=== PATIENT | female | born 1995 | race Caucasian/White ===

== ENCOUNTER 2024-01-28 00:43 | Emergency (ER) | payer BC, SELFPAY ==
[2024-01-28 00:49] VITALS: BP 109/77
--- NOTE | 2024-01-28 02:40 | ED.GENMED ---
History of Present Illness
<CHASTITY Kenny - Last Filed: 01/31/24 04:36>
General
Chief Complaint: Urinary Symptoms
Source: patient
Exam Limitations: none
Time Seen by Provider: 01/28/24 02:29
History of Present Illness
History of Present Illness:
This is a 28 year old female that comes in with c/o difficulty urinating. States that she was fine all day. Then in the afternoon she realized that she hadn't really urinated all day. States that she tried to pee but was unable. States that she then
vomited and had some urinary burning. States that she took a shower and tried to go again but was unable. States that she was nauseated and then had a loose stool. States that she did take Azo before coming. States that she did feel lightheaded.
Denies any fever, chills, chest pain, SOB, diarrhea, headache.
Past History
<CHASTITY Kenny - Last Filed: 01/31/24 04:36>
Past History
ED Past Medical History: IDDM, Hypothyroidism, Psychiatric (Anxiety ) and Other (Hemorrhagic ovarian cyst. Eczema, Vitiligo, History of MRSA)
ED Past Surgical History: None
Social History
Tobacco: Non-smoker
Alcohol: Occasional
Drug: None
Personal: Single
Living: with family
Review of Systems
<CHASTITY Kenny - Last Filed: 01/31/24 04:36>
Review of Systems
All Other Systems: ROS reviewed and negative except as documented in HPI and ROS
Constitutional: Reports no symptoms; Denies fever or chills
EENT: Reports no symptoms
Respiratory: Reports no symptoms; Denies cough or trouble breathing
Cardiac: Reports no symptoms; Denies chest pain
ABD/GI: Reports abdominal pain, nausea and vomiting; Denies diarrhea
: Reports dysuria and difficulty voiding; Denies frequency or urgency
Musculoskeletal: Reports no symptoms
Skin: Reports no symptoms
Neurological: Reports other (lightheaded); Denies dizzy or headache
Psychiatric: Reports no symptoms
Phy Exam
<CHASTITY Kenny - Last Filed: 01/31/24 04:36>
General Physical Exam
General Presentation: well appearing and no apparent distress
General age: appears stated age
General Skin: warm and dry
General Habitus: normal
General Mental: alert
General Hydration: appears well hydrated
ENT Exam
ENT Exam: TM's normal, pharynx normal and neck supple
Eye Exam
Eye Exam: EOMI
Cardiovascular Exam
Cardiovascular Exam: regular rate/rhythm, no edema, no murmur and normal peripheral pulses
Pulmonary Exam
Pulmonary Exam: lungs clear, no respiratory distress, no rales, chest non tender, no crackles, no rhonchi, no wheezing and no cough
Gastrointestinal Exam
Gastrointestinal Exam: normal bowel sounds, non tender, soft, no organomegaly, no pulsatile mass and non distended
Musculoskeletal Exam
Musculoskeletal Exam: full ROM and no edema
Skin Exam
Skin Exam: normal color, warm/dry, no rash and no petechia
Psychiatric Exam
Psychiatric Exam: normal mood/affect
Course
<CHASTITY Kenny - Last Filed: 01/31/24 04:36>
Orders/Labs/Results
Orders:
Orders
01/28/24 00:54
Urinalysis Reflex To Culture Urgent
Date Specimen was Collected: 01/28/24
Time Specimen was Collected: 00:53
Urine Microscopic Reflex Cult Urgent
Urine Culture Urgent
JULIAN Source: U
Specimen Description:
Date Specimen was Collected: 01/28/24
Time Specimen was Collected: 00:53
01/28/24 02:39
Bladder Scan- Treatment ONCE
0.9% Sodium Chloride 1000 ml [Nss] 1,000 ml IV BOLUS
Test Result ONCE
01/28/24 03:21
Complete Blood Count/With Diff Urgent
Comprehensive Metabolic Panel Urgent
HCG, Serum Qualitative Screen Urgent
01/28/24 07:09
Nitrofurantoin Monohydrate [Macrobid] 100 mg PO NOW STA
Abnormal Lab Results
01/28/24 01/28/24
00:54 03:21
RBC 3.62 L 10^6/uL
(4.20-5.40)
Hgb 10.3 L g/dL
(12.0-16.0)
Hct 29.5 L %
(37.0-47.0)
RDW 14.7 H %
(11.5-14.5)
Absolute Neuts (auto) 8.8 H 10^3/uL
(1.4-6.5)
Absolute Lymphs (auto) 1.1 L 10^3/uL
(1.2-3.4)
Neutrophils % 83.2 H %
(42.2-75.2)
Lymphocytes % 10.0 L %
(20.5-51.1)
Carbon Dioxide 20 L mmol/L
(22-30)
Urine Ketones Trace A
(Negative)
Ur Occult Blood Reflex 4+ A
(Negative)
Urine Nitrite (Reflex) Positive A
(Negative)
Urine Bilirubin 1+ A
(Negative)
Leukocyte Esterase Rfl 2+ A
(Negative)
Urine WBC (Reflex) >100 A /HPF
(0-5)
Urine Bacteria (Reflex) Many A
(Negative)
01/28/24 03:21
01/28/24 03:21
H/H low but improved when compared with prior labs, carbon dioxide slightly low.
Vital Signs
Initial and Last Documented VS:
Initial Vital Signs
Temp Pulse Resp BP Pulse Ox
97.9 F 84 16 109/77 100
01/28/24 00:49 01/28/24 00:49 01/28/24 00:49 01/28/24 00:49 01/28/24 00:49
Last Documented Vital Signs
Temp Pulse Resp BP Pulse Ox
98.8 F 103 16 91/53 100
01/28/24 07:42 01/28/24 07:42 01/28/24 07:42 01/28/24 07:42 01/28/24 07:42
<Rebekah Kaufman DO - Last Filed: 01/28/24 07:12>
Orders/Labs/Results
Orders:
Orders
01/28/24 00:54
Urinalysis Reflex To Culture Urgent
Date Specimen was Collected: 01/28/24
Time Specimen was Collected: 00:53
Urine Microscopic Reflex Cult Urgent
Urine Culture Urgent
JULIAN Source: U
Specimen Description:
Date Specimen was Collected: 01/28/24
Time Specimen was Collected: 00:53
01/28/24 02:39
Bladder Scan- Treatment ONCE
0.9% Sodium Chloride 1000 ml [Nss] 1,000 ml IV BOLUS
Test Result ONCE
01/28/24 03:21
Complete Blood Count/With Diff Urgent
Comprehensive Metabolic Panel Urgent
HCG, Serum Qualitative Screen Urgent
01/28/24 07:09
Nitrofurantoin Monohydrate [Macrobid] 100 mg PO NOW STA
Abnormal Lab Results
01/28/24 01/28/24
00:54 03:21
RBC 3.62 L 10^6/uL
(4.20-5.40)
Hgb 10.3 L g/dL
(12.0-16.0)
Hct 29.5 L %
(37.0-47.0)
RDW 14.7 H %
(11.5-14.5)
Absolute Neuts (auto) 8.8 H 10^3/uL
(1.4-6.5)
Absolute Lymphs (auto) 1.1 L 10^3/uL
(1.2-3.4)
Neutrophils % 83.2 H %
(42.2-75.2)
Lymphocytes % 10.0 L %
(20.5-51.1)
Carbon Dioxide 20 L mmol/L
(22-30)
Urine Ketones Trace A
(Negative)
Ur Occult Blood Reflex 4+ A
(Negative)
Urine Nitrite (Reflex) Positive A
(Negative)
Urine Bilirubin 1+ A
(Negative)
Leukocyte Esterase Rfl 2+ A
(Negative)
Urine WBC (Reflex) >100 A /HPF
(0-5)
Urine Bacteria (Reflex) Many A
(Negative)
01/28/24 03:21
01/28/24 03:21
Vital Signs
Initial and Last Documented VS:
Initial Vital Signs
Temp Pulse Resp BP Pulse Ox
97.9 F 84 16 109/77 100
01/28/24 00:49 01/28/24 00:49 01/28/24 00:49 01/28/24 00:49 01/28/24 00:49
Last Documented Vital Signs
Temp Pulse Resp BP Pulse Ox
98.8 F 103 16 91/53 100
01/28/24 07:42 01/28/24 07:42 01/28/24 07:42 01/28/24 07:42 01/28/24 07:42
<Nikolas Rehman PA-C - Last Filed: 01/31/24 07:13>
Orders/Labs/Results
Orders:
Orders
01/28/24 00:54
Urinalysis Reflex To Culture Urgent
Date Specimen was Collected: 01/28/24
Time Specimen was Collected: 00:53
Urine Microscopic Reflex Cult Urgent
Urine Culture Urgent
JULIAN Source: U
Specimen Description:
Date Specimen was Collected: 01/28/24
Time Specimen was Collected: 00:53
01/28/24 02:39
Bladder Scan- Treatment ONCE
0.9% Sodium Chloride 1000 ml [Nss] 1,000 ml IV BOLUS
Test Result ONCE
01/28/24 03:21
Complete Blood Count/With Diff Urgent
Comprehensive Metabolic Panel Urgent
HCG, Serum Qualitative Screen Urgent
01/28/24 07:09
Nitrofurantoin Monohydrate [Macrobid] 100 mg PO NOW STA
Abnormal Lab Results
01/28/24 01/28/24
00:54 03:21
RBC 3.62 L 10^6/uL
(4.20-5.40)
Hgb 10.3 L g/dL
(12.0-16.0)
Hct 29.5 L %
(37.0-47.0)
RDW 14.7 H %
(11.5-14.5)
Absolute Neuts (auto) 8.8 H 10^3/uL
(1.4-6.5)
Absolute Lymphs (auto) 1.1 L 10^3/uL
(1.2-3.4)
Neutrophils % 83.2 H %
(42.2-75.2)
Lymphocytes % 10.0 L %
(20.5-51.1)
Carbon Dioxide 20 L mmol/L
(22-30)
Urine Ketones Trace A
(Negative)
Ur Occult Blood Reflex 4+ A
(Negative)
Urine Nitrite (Reflex) Positive A
(Negative)
Urine Bilirubin 1+ A
(Negative)
Leukocyte Esterase Rfl 2+ A
(Negative)
Urine WBC (Reflex) >100 A /HPF
(0-5)
Urine Bacteria (Reflex) Many A
(Negative)
01/28/24 03:21
01/28/24 03:21
Vital Signs
Initial and Last Documented VS:
Initial Vital Signs
Temp Pulse Resp BP Pulse Ox
97.9 F 84 16 109/77 100
01/28/24 00:49 01/28/24 00:49 01/28/24 00:49 01/28/24 00:49 01/28/24 00:49
Last Documented Vital Signs
Temp Pulse Resp BP Pulse Ox
98.8 F 103 16 91/53 100
01/28/24 07:42 01/28/24 07:42 01/28/24 07:42 01/28/24 07:42 01/28/24 07:42
<CHASTITY Kenny - Last Filed: 01/31/24 04:36>
MDM/Problems Addressed
Differential Diagnosis Includes:
UTI, Urinary retention
MDM/Problems Addressed:
This is a 28 year old female that comes in with c/o difficulty urinating. States that she realized around mid day that she had not voided. States that she is on Mounjaro to help her loose weight. State that she always feels dehydrated with this.
States that she is not sure if she is emptying her bladder or not. States that she can't urinate only a little.
Will check labs, give IV fluids and Urine. Patient bladder scanned and no urine was found in the bladder.
Chronic conditions affecting care: DM
Acute Exacerbation and/or Progression of Chronic Illness:
NA
<CHASTITY Kenny - Last Filed: 01/31/24 04:36>
*Pulse Oximetry
Patient hypoxic: no
*EKG
Interpreted by ED Provider?: NA
Rate: EKG- N/A
*Farm Equipment Engineer Interpretation
Rate: Farm Equipment Engineer- N/A
*Critical Care Note
Total Time (30-74mins, 75-104mins- exclusive of procedures): Not Applicable
<Nikolas Rehman PA-C - Last Filed: 01/31/24 07:13>
Update Note
Update Note:
January 30 7:13 AM: Urine culture shows greater than 100,000 colony-forming units of E. coli. Patient started on Macrobid. This is effective. No indication for any change
ED Attending Note
<CHASTITY Kenny - Last Filed: 01/31/24 04:36>
-
Portions of this chart may have been created with voice recognition software.� Occasional wrong word or��sound alike� substitutions may have occurred due to the inherent limitations of voice recognition software.
<Rebekah Kaufman DO - Last Filed: 01/28/24 07:12>
ED Attending Note
Patient seen and examined by attending physician: Yes
I performed a history and physical exam of patient and discussed management with resident, I reviewed resident's note and agree with documented findings and plan of care.: Yes
ED Attending Note:
28-year-old female presents with 24-hour history of dysuria, feeling that she may have a UTI. Remote history of previous UTIs. She was concerned for possible dehydration, limited oral intake over the past several days but no nausea nor vomiting,
no diarrhea, no fever no chills, no flank pain.
Abdomen remains soft and nontender.
Initial bladder scan showed no urine in the bladder.
She was hydrated with IV fluids.
Labs are unremarkable with normal white blood cell count, mild anemia. Unremarkable chemistries with normal BUN and creatinine.
Urinalysis although a contaminated specimen is consistent with UTI, nitrite positive, greater than 100 WBCs and many bacteria.
Will treat with a 5-day course of Macrobid.
Urine culture is pending.
Discussed importance of remaining well-hydrated on a daily basis.
Prompt follow-up with PCP for recheck.
Discharge Plan
Departure
Patient Disposition: Home (Routine Discharge)
Date of Disposition: 01/28/24
Time of Disposition: 07:11
Patient with high blood pressure during this ER visit?: No
Condition: Good
Discharge Problem:
Acute cystitis
Instructions: Urinary Tract Infection, Adult (DC)
Prescriptions:
New
nitrofurantoin monohyd/m-cryst [Macrobid] 100 mg capsule
100 mg PO BID 5 Days Qty: 10 0RF
No Action
levothyroxine 150 MCG tablet
150 mcg PO DAILY
ondansetron 4 MG tablet,disintegrating
4 mg PO TIDPRN PRN (Reason: nausea) Qty: 12 0RF
venlafaxine 75 MG capsule,extended release 24hr
75 mg PO DAILY
norethindrone ac-eth estradiol [06/25 (21)] 1 TAB tablet
1 tab PO DAILY
Insulin Pump [Patient's Own Insulin Pump:] 1 UNITS Pump.Resvr
1.3 pump SC
Referrals:
Sara Sanches MD [Family Provider] - Call in 1-3 days for appt
Interventions
Interventions:
*Risk Screen - Suicide Last Done: 01/28/24 04:07
*General Assessment Last Done: 01/28/24 03:56
*Neglect/Abuse Screening Last Done: 01/28/24 03:56
*ED COVID-19 Vaccine History Last Done: 01/28/24 04:07
*Nursing Disposition Last Done: 01/28/24 07:42
ED-Female Genitourinary Assessment Last Done: 01/28/24 03:11
Discharge Date and Time
Discharge Date/Time: 08/24/24 07:35
Print Language: SYRIAC
[2024-01-28 03:08] VITALS: BMI 26.2
[2024-01-28 03:10] VITALS: BP 94/59
[2024-01-28] MEDS: NSS 1000 IV (03:29)
[2024-01-28 03:32] LABS: % Basophils 0.4 % (0-2); % Eosinophils 0.7 % (0-6); % Immature Granulocytes 0.3 % (0-0.5); % Monocytes 5.4 % (1.7-9.3); % Neutrophils 83.2 % (42.2-75.2); Absolute Eosinophils 0.1 10^3/uL (0-0.7); Absolute Lymphocytes 1.1 10^3/uL (1.2-3.4); Absolute Monocytes 0.6 10^3/uL (0.1-0.6); Absolute Neutrophils 8.8 10^3/uL (1.4-6.5); Hematocrit 29.5 % (37.0-47.0); Hemoglobin 10.3 g/dL (12.0-16.0); Mean Corp Hgb Conc. 34.9 g/dL (33.0-37.0); Mean Corpuscular Hgb 28.5 pg (27.0-31.0); Mean Corpuscular Volume 81.5 fL (81.0-99.0); Mean Platelet Volume 9.5 fL (7.4-10.4); Nucleated Red Blood Cells % 0 %; Platelet Count 377 10^3/uL (130-400); Red Blood Cell Count 3.62 10^6/uL (4.20-5.40); Red Cell Dist. Width 14.7 % (11.5-14.5); White Blood Cell Count 10.6 10^3/uL (4.8-10.8)
[2024-01-28 03:45] LABS: HCG, Serum Qualitative Screen Negative
[2024-01-28 03:49] LABS: ALT (SGPT) < 10 U/L (0-35); AST (SGOT) 23 U/L (14-36); Albumin 4.6 g/dl (3.5-5.0); Alkaline Phosphatase 52 U/L (38-126); Blood Urea Nitrogen 11 mg/dl (7-17); Carbon Dioxide 20 mmol/L (22-30); Chloride 103 mmol/L (98-107); Estimated Creatinine Clearance 102 ml/min; Glucose 80 mg/dl (70-99); Potassium 4.1 mmol/L (3.5-5.1); Sodium 139 mmol/L (135-145); Total Bilirubin 0.6 mg/dl (0.2-1.3); Total Protein 7.4 g/dl (6.3-8.2); eGFR > 60.00
[2024-01-28 05:08] LABS: Urine Albumin Trace (Neg - Trace); Urine Bilirubin 1+ (Negative); Urine Character Slightly Cloudy (Clear); Urine Glucose Negative (Negative); Urine Ketone Trace (Negative); Urine Leukocyte 2+ (Negative); Urine Nitrite Positive (Negative); Urine Occult Blood 4+ (Negative); Urine Urobilinogen 1+ (Neg - 1+)
[2024-01-28 05:13] LABS: Urine Color Orange
[2024-01-28 06:09] LABS: Urine Amorphous Seen; Urine Bacteria Many (Negative); Urine Mucus Many; Urine Squamous Cell >30 /LPF (Few); Urine Urothelial Cell >30 /LPF (FEW); Urine White Cell >100 /HPF (0-5)
[2024-01-28] MEDS: MACROBID 100 MG PO (07:24)
--- NOTE | 2024-01-28 07:41 | EDRN ---
Reviewed discharge instructions with patient. Verbalized understanding. Ambulated with a steady gait to the lobby.
[2024-01-28 07:42] VITALS: BP 91/53
== END 2024-01-28 07:35 | disposition home or self-care (01) ==
LOC: EMR 00:43
PROVIDERS: Clinical Nurse Specialist Family Health; EMERGENCY PHYSICIAN Emergency Medicine; FAMILY PHYSICIAN Internal Medicine
DX: N30.00 Acute cystitis without hematuria (principal); E11.9 Type 2 diabetes mellitus without complications; E03.9 Hypothyroidism, unspecified; F41.9 Anxiety disorder, unspecified; D64.9 Anemia, unspecified; Z86.14 Personal history of Methicillin resistant Staphylococcus aureus infection; Z87.440 Personal history of urinary (tract) infections
CPT/HCPCS: 99282; 80053; 81003; 81015; 84703; 85025; 87071; 87086; 87186